=== PATIENT | male | born 1995 | race Caucasian/White ===

== ENCOUNTER 2022-02-17 11:58 | Emergency (ER) | payer BC ==
[~2022-02-17] VITALS: Ht 170.2 cm; Wt 93.7 kg
[2022-02-17] MEDS ORDERED: FAMOTIDINE 20 MG TAB PO ONE (13:30)
[2022-02-17] MEDS ORDERED: FAMOTIDINE 20 MG/2 ML VIAL IV ONE (13:38)
[2022-02-17] MEDS ORDERED: PANTOPRAZOLE SO40 MG PO (13:49)
== END 2022-02-17 14:00 | disposition home or self-care (01) ==
LOC: FSED 12:40
DX: R10.13 Epigastric pain (principal); K29.70 Gastritis, unspecified, without bleeding; K21.9 Gastro-esophageal reflux disease without esophagitis
CPT/HCPCS: 80048; 80076; 81003; 85025; 96374; 99283